=== PATIENT | female | born 1985 | race Caucasian/White ===

== ENCOUNTER 2017-05-03 07:04 | Emergency (ER) | payer MEDICAID ==
[~2017-05-03 07:04] MED LIST: SE-NTAB3 PO
--- NOTE | 2017-05-03 08:18 | PD ---
HPI Travel History International Travel<30 Days: No Contact w/Intl Traveler<30Days: No History of Present Illness HPI Patient is a 31-year-old at 26/5 presenting today for vaginal bleeding. She states earlier this morning she woke up, took a shower, and noticed spots of blood on the ground when she was walking outside the shower. She noted that there was blood coming from her vagina. No bleeding noted at this time. Currently she states that she feels normal movement. No large gushes of fluid. She denies any recent intercourse, trauma, lightheadedness, dizziness, abdominal pain, contractions, nausea, vomiting, fever, chills, other abnormally colored or malodorous vaginal discharge, dysuria, hematuria, frequency, change in urine color/smell. No other complaints at this time. Weeks Gestation: 26 Para: 1 : 2 Miscarriage: 0 : 0 History Past Medical History Medical History: Denies Significant Hx Obstetric History Obstetric History 1 for failure to descend Past Surgical History Narrative Surgical Previous dental surgery, 1 Family History Family History: Negative Social History Alcohol Use: Yes (Occasional) Tobacco Use: Yes (1/2 pack per day) Substance Abuse: No Allergies-Medications (Allergen,Severity, Reaction): Coded Allergies: No Known Allergies (Unverified Adverse Reaction, Unknown, 03/21/17) Home Meds Reported Medications Vit W/ Docusate-Fe Fu (Se-Franky 19 29-1 mg) 29 Mg Iron-1 Mg-25 Mg Tab, 1 TAB PO DAILY for Nutritional Supplement, TAB 0 Refills 02/02/17 Review of Systems General / Constitutional: No: Fever, Chills Eyes: No: Diploplia, Blurred Vision HENT: No: Headaches, Vertigo, Lightheadedness Cardiovascular: No: Chest Pain or Discomfort, Palpitations, Tachycardia, Syncope Respiratory: No: Cough, Short of Breath, Wheezing Gastrointestinal: No: Nausea, Vomiting, Diarrhea, Abdominal Pain Genitourinary: Vaginal Bleeding, No: Urgency, Frequency, Dysuria, Nocturia, Hematuria, Discharge Musculoskeletal: No: Limited ROM, Weakness Skin: No Rash, No Itching, No Dryness Neurologic: No: Weakness, Dizziness Endocrine: No: Polydipsia, Polyuria Hematologic/Lymphatic: No Easy Bruising, No Lymph Node Enlargement Physical Exam Narrative GENERAL: Well-nourished, well-developed patient. SKIN: Warm and dry. HEAD: Normocephalic and atraumatic. EYES: No scleral icterus. No injection or drainage. ENT: No nasal drainage noted. Mucous membranes pink. Airway patent. NECK: Supple, trachea midline. No JVD. CARDIOVASCULAR: Regular rate and rhythm without murmurs, gallops, or rubs. RESPIRATORY: Breath sounds equal bilaterally. No accessory muscle use. ABDOMEN/GI: Abdomen soft, non-tender, bowel sounds present, no rebound, no guarding GENITOURINARY: External Genitalia: intact and normal in appearance, 2 small dried blood spots on medial thigh and pubic area Speculum examination: Closed, thick cervix with normal appearing white discharge surrounding. No christina or dried blood in vaginal vault. FHT's: Category: 1 Baseline: 140 Reactive: yes Variability: moderate Decels: none EXTREMITIES: No cyanosis or edema. BACK: Nontender without obvious deformity. No CVA tenderness. NEUROLOGICAL: Awake and alert. Motor and sensory grossly within normal limits. Five out of 5 muscle strength in all muscle groups. Normal speech. Data Data Vital Signs Reviewed: Yes MDM Plan Patient is a 31-year-old at / who presented today for vaginal bleeding. No signs of symptomatic anemia. Bleeding was minimal and has stopped since then. No pain at this time. Normal speculum examination. US without sign of previa at this time. - Nonpainful bleeding in second trimester, resolved prior to examination - Continue routine care - Encourage PO hydration - Continue outpatient OB care - Monitor for additional bleeding, signs of labor EDINSON Parkinson Diagnosis Diagnosis: Primary Impression: Antepartum bleeding, third trimester Additional Impression: 26 weeks gestation of Disposition: 01 DISCHARGE HOME Condition: Stable Patient Instructions: General Instructions, Early Labor Signs (ED), Abdominal Pain in (ED), Labor (ED), Movement (ED) Darrel Grigsby MD R1 May 03, 2017 08:18
== END 2017-05-03 10:30 | disposition home or self-care (01) ==
LOC: HOBED 07:04
DX: O46.92 Antepartum hemorrhage, unspecified, second trimester (principal); Z3A.26 26 weeks gestation of pregnancy
CPT/HCPCS: 76805

== ENCOUNTER 2017-08-04 08:15 | Inpatient (IN) | payer OTHER ==
[~2017-08-04] VITALS: Ht 157.5 cm; Wt 73.0 kg
[2017-08-04 09:16] LABS: AUTOMATED NEUTROPHIL # 6.7 TH/MM3 (1.8-7.7); BASOPHIL % 0.3 % (0.0-2.0); EOSINOPHIL # 0.1 TH/MM3 (0-0.4); EOSINOPHIL % 1.1 % (0.0-4.0); HEMATOCRIT 33.6 % (35.0-46.0); HEMOGLOBIN 11.7 GM/DL (11.6-15.3); LYMPH % 18.3 % (9.0-44.0); LYMPHOCYTE # 1.7 TH/MM3 (1.0-4.8); MEAN CELL VOLUME 94.7 FL (80.0-100.0); MEAN CORPUSCULAR HEMOGLOBIN 33.1 PG (27.0-34.0); MEAN CORPUSCULAR HGB CONC 34.9 % (32.0-36.0); MEAN PLATELET VOLUME 6.9 FL (7.0-11.0); MONO % 6.7 % (0.0-8.0); MONOCYTE # 0.6 TH/MM3 (0-0.9); NEUT % 73.6 % (16.0-70.0); PLATELET COUNT 232 TH/MM3 (150-450); RED BLOOD COUNT 3.55 MIL/MM3 (4.00-5.30); RED CELL DISTRIBUTION WIDTH 11.9 % (11.6-17.2); WHITE BLOOD COUNT 9.1 TH/MM3 (4.0-11.0)
[2017-08-04 09:25] LABS: BACTERIA, URINE RARE /hpf; BILIRUBIN, URINE NEG (NEG); BLOOD, URINE SMALL (NEG); GLUCOSE,URINE NEG (NEG); KETONE, URINE NEG (NEG); MUCUS URINE FEW /lpf (OCC); NITRITE,URINE NEG (NEG); SQUAMOUS EPITHELIAL CELL URINE 3 /hpf (0-5); URINE COLOR YELLOW (YELLW/STRAW); URINE LEUKOCYTE ESTERASE TRACE (NEG)
[2017-08-04] MEDS ORDERED: MORPHINE SULFATE PF 5 MG/10 ML VIAL ONE (09:57)
[2017-08-04] MEDS ORDERED: ACETAMINOPHEN 1000 MG/100 ML 100 ML IV ONE ×2 (09:57→12:45)
[2017-08-04] MEDS ORDERED: LACTATED RINGER'S 1000 ML INJ 1,000 ML IV ONE (10:03)
[2017-08-04] MEDS ORDERED: LACTATED RINGER'S 1000 ML INJ 1,000 ML IV SCH ×2 (10:33→17:37)
--- NOTE | 2017-08-04 10:43 | HHI.HP ---
History & Physical H&P 31-year-old 001, IUP at 40/0 care complicated by tobacco use, history of prior delivery, abnormal Pap during that will require a LEEP per office notes The patient presents for section today as she did not go into labor prior to 40 weeks. She denies vaginal bleeding, loss of fluid, decreased movement. Initial went to due to failure to progress. Patient's last meal was at 8 PM on day prior to admission. Weeks Gestation: 40 Para: 1 : 2 History Past Medical History Medical History: Denies Significant Hx Obstetric History Obstetric History Full-term delivery Induction of labor at 40.5 Patient denies any sexually transmitted infection The patient has an abnormal Pap smear during that per the office notes , will require a LEEP Menarche started at age 11-12 and menses occur monthly. Her menses last 2-4 days. Past Surgical History Narrative Surgical delivery 1 Family History Narrative Family History Denies Social History Alcohol Use: No Tobacco Use: Yes Substance Abuse: No Allergies-Medications (Allergen,Severity, Reaction): Coded Allergies: No Known Allergies (Unverified Adverse Reaction, Unknown, 03/21/17) Home Meds Reported Medications Vit W/ Docusate-Fe Fu (Se-Franky 19 29-1 mg) 29 Mg Iron-1 Mg-25 Mg Tab, 1 TAB PO DAILY for Nutritional Supplement, TAB 0 Refills 02/02/17 Review of Systems Except as stated in HPI: all other systems reviewed are Neg Physical Exam Narrative GENERAL: Well-nourished, well-developed patient. SKIN: Warm and dry. HEAD: Normocephalic and atraumatic. EYES: No scleral icterus. No injection or drainage. ENT: No nasal drainage noted. Mucous membranes pink. Airway patent. NECK: Supple, trachea midline. No JVD. CARDIOVASCULAR: Regular rate and rhythm without murmurs, gallops, or rubs. RESPIRATORY: Breath sounds equal bilaterally. No accessory muscle use. BREASTS: deferred ABDOMEN/GI: Abdomen soft, non-tender, bowel sounds present, no rebound, no guarding Gravid GENITOURINARY: Deferred EXTREMITIES: No cyanosis or edema. BACK: Nontender without obvious deformity. NEUROLOGICAL: Awake and alert. Motor and sensory grossly within normal limits. Normal speech. Musculoskeletal: Grossly normal range of motion, gait, muscle strength Psychiatric: Grossly normal memory and affect MDM Plan Assessment/plan: 1. IUP at 40/0 here for scheduled as she did not go in active labor prior to 40 weeks. Patient has been n.p.o. since midnight. 2. Routine care. Will receive Jurgen Leal MD R1 Aug 04, 2017 10:43
--- NOTE | 2017-08-04 11:12 | HHI.PR ---
SYSTEM SUPPORT TECHNICIAN Note Note Pt presents for scheduled rCS. I personally performed her initial consultation. R/B/A of were discussed with the patient. Specifically we reviewed risks of bleeding, infection, pain, injury to baby or internal organs/nerves/vessels/structures. We reviewed the rare but possible need for emergency hysterectomy if uncontrolled bleeding occurs. She was also counseled on the rare but possible need for a blood transfusion and the associated risks of allergic reaction, HIV (1:1M), and hepatitis (4:1M). Pt desires permanent sterilization. Pt was counseled on R/B/A of BTL including but not limited to bleeding, infection, damage to surrounding structures including bowel/bladder. Pt was counseled on the risk of regret up to 30% and risk of failure approximately 3-5:1000. Pt understands high risk of ectopic in setting of failure, with need to contact provider immediately with positive UPT. She understands the permanent and irreversible nature of the procedure and the alternatives including OCPs, patch, NuvaRing, injections, IUD , Nexplanon, partner vasectomy. She is aware that BTL/salpingectomies decrease future risk of ovarian cancer. She stated her understanding and elects to proceed with permanent sterilization. Papers signed 06/27/17. She voiced understanding, all questions were answered, and consents were signed. Orders have been placed, bicitra and antibiotics administered, SCDs and oliver placed, and RN/ANES/NICU/Charge notified. Cinda Dempsey MD Aug 04, 2017 11:12
[2017-08-04] MEDS ORDERED: ceFAZolin 2 GM PREMIX 50 ML IV SCH (11:15)
[2017-08-04] MEDS ORDERED: CITRIC ACID-SODIUM CITRATE LIQ 30 ML UDC PO SCH (11:45)
[2017-08-04] MEDS ORDERED: PROPOFOL 200 MG/20 ML AMP IV ONE (12:00)
[2017-08-04] MEDS ORDERED: ePHEDrine/NS 25 MG/5 ML SYRINGE IV ONE (12:00)
[2017-08-04] MEDS ORDERED: ONDANSETRON HCL 4 MG/2 ML VIAL IV ONE (12:00)
[2017-08-04] MEDS ORDERED: PHENYLEPH/NS 1000 MCG/10 ML SYR IV ONE (12:00)
[2017-08-04] MEDS ORDERED: OXYTOCIN 10 UNIT/ML AMP IV ONE (12:00)
[2017-08-04] MEDS ORDERED: DEXAMETHASONE SOD PHOS 4 MG/ML VIAL IV ONE (12:00)
[2017-08-04] MEDS ORDERED: OXYTOCIN 30 UNITS-500ML PREMIX 500 ML IV ONE (12:45)
[2017-08-04] MEDS ORDERED: KETOROLAC TROMETHAMINE 60 MG/2 ML (IM) VIAL IM PRN (12:45)
[2017-08-04] MEDS ORDERED: ACETAMINOPHEN 325 MG TAB PO PRN (12:45)
[2017-08-04] MEDS ORDERED: SODIUM CHLORIDE 0.9% FLUSH 10 ML FLUSH IV FLUSH PRN (12:45)
--- NOTE | 2017-08-04 12:49 | PD.OP ---
Operative Report Date of Surgery: Aug 04, 2017 Preoperative Diagnosis: 1. IUP @ 40.0wks 2. h/o CSx1 3. desires permanent sterilization Postoperative Diagnosis: same Procedure: rCS and sterilization via distal salpingectomies Anesthesia: spinal Surgeon: Cinda Dempsey Route Vending Machine Servicer(s): MS-4 Rafia Operation and Findings: Antibiotics: 2g ancef DVT prophylaxis: SCDs were in place and active throughout the entire procedure EBL: 550cc IVF: 1500cc UOP: 200cc Drain(s): Hernandez to straight drain Specimen(s): cord blood Findings: vtx female delivered at 11:47am, wt 2695g, APGARs 8/9 Complications: none Disposition: to PACU in stable condition Technique: The R/B/A were discussed with the pt, all questions answered, and consents signed. The pt was taken to the operating room where spinal anesthesia was found to be adequate. She was then prepped and draped in the normal sterile fashion in the dorsal supine position with leftward tilt. A Pfannenstiel skin incision was then made with the scalpel and carried through to the underlying layer of fascia. The fascia was incised in the midline and the incision extended laterally with Hurley scissors. The superior aspect of the fascial incision was grasped with Bhavin clamps, elevated, and the underlying rectus muscles dissected off bluntly and with Hurley scissors. Attention was then turned to the inferior aspect of this incision which, in a similar fashion, was grasped , tented up with Bhavin clamps, and the rectus muscles dissected off bluntly and with Hurley scissors. The rectus muscles were then in the midline, and the peritoneum identified and entered bluntly. The peritoneal incision was stretched with good visualization of the bladder. The bladder blade was inserted and the vesicouterine peritoneum identified, grasped with pick-ups, and entered sharply with Metzenbaum scissors. This incision was extended laterally and a bladder flap created digitally. The bladder blade was then reinserted and the lower uterine segment incised in a transverse fashion with the scalpel. The uterine incision was stretched superiorly and inferiorly. The bladder blade was removed and the 's head delivered atraumatically followed by the body. Delayed cord clamping ensued for 45sec while the infant was dried, suctioned, and stimulated. The cord was double clamped and cut and infant handed off to the waiting team. The placenta expelled with manual fundal massage. The uterus was exteriorized and cleared of all clots and debris. The uterine incision was repaired with 0- vicryl in a running, locked fashion. A second layer using 0-monocryl suture was used to obtain excellent hemostasis via embrication. Next, the left fallopian tube was identified and the distal portion was clamped with a Vanessa and the segment excised with Metzenbaum scissors. The pedicle was ligated with two free ties of plain gut. Good hemostasis was noted. Attention was then turned to the R fallopian tube which was identified as above, grasped, clamped, and excised in a similar fashion. Good hemostasis was noted. The posterior cul-de-sac was suctioned and the uterus was returned to the abdomen. The gutters were cleared of all clots and debris. Pietro was placed along the bladder flap edge to aid in hemostasis. The underneath fascia was inspected and found to be hemostatic. The fascia was closed with 0-vicryl in a running fashion. The subcutaneous tissue was irrigated with saline and made hemostatic with the Bovie. The subcutaneous layer was reapproximated with plain gut with simple interrupted stitches. The skin was closed with 4-0 monocryl. Steristrips were placed and the incision dressed appropriately. The patient tolerated the procedure well. She was taken to the recovery room in stable condition. Sponge, lap, instrument, and needle counts were correct x3. Cinda Dempsey MD Aug 04, 2017 12:49
[2017-08-04] MEDS ORDERED: ONDANSETRON ODT 4 MG TAB PO PRN (13:00)
[2017-08-04] MEDS ORDERED: MORPHINE SULFATE 4 MG/ML INJ ONE (13:25)
[2017-08-04] MEDS ORDERED: MORPHINE SULFATE 4 MG/ML INJ IV PRN (14:00)
[2017-08-04] MEDS ORDERED: EPIDURAL-DO NOT ADMINISTER ANTICOAGULANTS PRN (14:15)
[2017-08-04] MEDS ORDERED: EPIDURAL-DIPHENHYDRAMINE HCL 50 MG/ML VIAL IV PUSH PRN (14:15)
[2017-08-04] MEDS ORDERED: EPIDURAL-DIPHENHYDRAMINE HCL 50 MG CAP PO PRN (14:15)
[2017-08-04] MEDS ORDERED: EPIDURAL-NO SYSTEMIC NARCOTICS PRN (14:15)
[2017-08-04] MEDS ORDERED: EPIDURAL-NALOXONE HCL 0.4 MG/ML AMP IV PUSH PRN (14:15)
--- NOTE | 2017-08-04 14:21 | HHI.PR ---
BOX BUILDER Note Note Postoperatively, I was notified by RN that while in PACU pt was experiencing bigeminy/trigeminy on telemetry. Cardiology c/s was placed and stat EKG ordered. Sinus rhythm with sinus arrhythmia and incomplete RBBB noted. Dr. Skelton (type disk quality control supervisor) was contacted directly. He stated that findings were not concerning and could reflect postoperative status. Pt is asx. Will monitor closely. OK to transfer to PP unit. Cinda Dempsey MD Aug 04, 2017 14:21
[2017-08-04] MEDS: oxyCODONE/ACETAMINOPHEN 5 MG/325 MG TAB PO PRN ×2 (17:01→21:40)
[2017-08-04] MEDS ORDERED: OXYTOCIN 30 UNITS-500ML PREMIX 500 ML IV PRN (17:45)
[2017-08-04 20:21] VITALS: BP 94/54; PULSE 76; RESP 17; TEMP 98.4
[2017-08-04] MEDS: SODIUM CHLORIDE 0.9% FLUSH 10 ML FLUSH IV FLUSH SCH (21:00)
[2017-08-04] MEDS: DOCUSATE SODIUM 50 MG/SENNA 8.6 MG TAB PO PRN (21:40)
[2017-08-05 00:03] VITALS: BP 110/59; PULSE 68; RESP 17; TEMP 98.3
[2017-08-05] MEDS: oxyCODONE/ACETAMINOPHEN 5 MG/325 MG TAB PO PRN ×5 (02:19→20:13)
[2017-08-05 04:45] VITALS: BP 100/63; PULSE 78; RESP 17; TEMP 98
[2017-08-05 05:51] LABS: AUTOMATED NEUTROPHIL # 10.4 TH/MM3 (1.8-7.7); BASOPHIL % 0.4 % (0.0-2.0); EOSINOPHIL % 0.4 % (0.0-4.0); HEMATOCRIT 30.1 % (35.0-46.0); HEMOGLOBIN 10.5 GM/DL (11.6-15.3); LYMPH % 13.6 % (9.0-44.0); LYMPHOCYTE # 1.8 TH/MM3 (1.0-4.8); MEAN CELL VOLUME 95.8 FL (80.0-100.0); MEAN CORPUSCULAR HEMOGLOBIN 33.4 PG (27.0-34.0); MEAN CORPUSCULAR HGB CONC 34.8 % (32.0-36.0); MEAN PLATELET VOLUME 6.9 FL (7.0-11.0); MONO % 6.6 % (0.0-8.0); MONOCYTE # 0.9 TH/MM3 (0-0.9); PLATELET COUNT 200 TH/MM3 (150-450); RED BLOOD COUNT 3.15 MIL/MM3 (4.00-5.30); RED CELL DISTRIBUTION WIDTH 11.8 % (11.6-17.2); WHITE BLOOD COUNT 13.1 TH/MM3 (4.0-11.0)
--- NOTE | 2017-08-05 08:18 | PD.CONS ---
HPI Consult Requested By Primary Care Physician No Primary Care Physician History of Present Illness This is an otherwise healthy 32-year-old female who had a done yesterday. In postop patient was noted to have PVCs in bigeminal and trigeminal pattern, no strips available. An EKG was done which showed sinus arrhythmia and incomplete right bundle branch block. Patient states that for the last week or so she has been feeling more panicked and is associated chest heaviness with it. She denies any shortness of breath or palpitations. She does continue to smoke. Review of Systems Negative except as stated in the HPI Past Family Social History Allergies: Coded Allergies: No Known Allergies (Verified Adverse Reaction, Unknown, 08/04/17) Past Medical History No significant Reported Medications Reported Meds & Active Scripts Active Reported Se-Franky 19 29-1 mg ( Vit W/ Docusate-Fe Fu) 29 Mg Iron-1 Mg-25 Mg Tab 1 Tab PO DAILY Active Ordered Medications Current Medications Medications (Trade) Dose Ordered Sig/Franchesca Route Start Time Stop Time Status Last Admin Lactated Ringer's 1,000 ml @ 150 mls/hr Q6H40M IV 08/04/17 10:33 Cefazolin Sodium/ Dextrose 50 ml @ 100 mls/hr PUBLIC ADDRESS ANNOUNCER IV 08/04/17 11:15 08/08/17 11:14 08/04/17 11:01 (Bicitra Liq) 30 ml PUBLIC ADDRESS ANNOUNCER PO 08/04/17 11:45 08/08/17 11:44 08/04/17 11:01 Lactated Ringer's 1,000 ml @ 100 mls/hr Q10H IV 08/04/17 17:37 08/05/17 13:36 08/04/17 21:39 Oxytocin 500 ml @ 100 mls/hr UNSCH X1 PRN IV 08/04/17 17:45 08/05/17 17:44 (NS Flush) 2 ml BID IV FLUSH 08/04/17 21:00 (NS Flush) 2 ml UNSCH PRN IV FLUSH 08/04/17 12:45 (Mylicon Chew) 80 mg QID PRN PO 08/04/17 12:45 (Tylenol) 650 mg Q6H PRN PO 08/04/17 12:45 (Toradol Inj) 30 mg Q6H PRN IM 08/04/17 12:45 08/05/17 12:44 (Percocet 5-325 Mg) 1 tab Q4H PRN PO 08/04/17 12:45 08/04/17 17:01 (Percocet 5-325 Mg) 2 tab Q4H PRN PO 08/04/17 12:45 08/05/17 06:45 (Lisa-Colace) 2 tab Q12H PRN PO 08/04/17 12:45 08/04/17 21:40 (M-M-R Ii Inj) 0.5 ml ONCE ONCE SQ 08/05/17 16:00 08/05/17 16:01 (Boostrix Inj) 0.5 ml ONCE ONCE IM 08/05/17 16:00 08/05/17 16:01 (Zofran Odt) 4 mg Q6H PRN PO 08/04/17 13:00 ([facility] [place] Nursing Information) NO SYSTEMIC NARCOTICS TO BE GIVEN FO... UNSCH PRN .XX 08/04/17 14:15 08/05/17 14:14 (Narcan Inj) 0.4 mg UNSCH PRN IV PUSH 08/04/17 14:15 08/05/17 14:14 (Benadryl Inj) 25 mg Q6H PRN IV PUSH 08/04/17 14:15 08/05/17 14:14 (Benadryl) 50 mg Q6H PRN PO 08/04/17 14:15 08/05/17 14:14 ([facility] [place] Nursing Information) ALL NURSING DEPARTMENTS UNSCH PRN .XX 08/04/17 14:15 08/05/17 14:14 Family History Denies Social History Half pack a day tobacco use Physical Exam Vital Signs Vital Signs Date Time Temp Pulse Resp B/P (MAP) Pulse Ox O2 Delivery O2 Flow Rate FiO2 08/05/17 04:45 98.0 78 17 100/63 (75) 08/05/17 00:03 98.3 68 17 110/59 (76) 08/04/17 20:21 98.4 76 17 94/54 (67) Physical Exam GENERAL: Well-developed well-nourished female in no acute distress. NECK: No carotid bruits. No JVD. CARDIOVASCULAR: Regular rate and rhythm. No murmur appreciated. RESPIRATORY: No accessory muscle use. Clear to auscultation. Breath sounds equal bilaterally. MUSCULOSKELETAL: No clubbing or cyanosis. No edema. NEUROLOGICAL: Awake and alert. Normal speech. Laboratory Laboratory Tests Test 08/04/17 08:30 08/04/17 08:45 08/05/17 05:34 Urine Color YELLOW Urine Turbidity CLEAR Urine pH 7.0 Urine Specific [place] 1.020 Urine Protein TRACE Urine Glucose (UA) NEG Urine Ketones NEG Urine Occult Blood SMALL Urine Nitrite NEG Urine Bilirubin NEG Urine Urobilinogen LESS THAN 2.0 Urine Leukocyte Esterase TRACE Urine RBC 3 Urine WBC 1 Urine Squamous Epithelial Cells 3 Urine Bacteria RARE Urine Mucus FEW Microscopic Urinalysis Comment CULT NOT INDICATED Urine Opiates Screen NEG Urine Barbiturates Screen NEG Urine Amphetamines Screen NEG Urine Benzodiazepines Screen NEG Urine Cocaine Screen NEG Urine Cannabinoids Screen NEG White Blood Count 9.1 13.1 Red Blood Count 3.55 3.15 Hemoglobin 11.7 10.5 Hematocrit 33.6 30.1 Mean Corpuscular Volume 94.7 95.8 Mean Corpuscular Hemoglobin 33.1 33.4 Mean Corpuscular Hemoglobin Concent 34.9 34.8 Red Cell Distribution Width 11.9 11.8 Platelet Count 232 200 Mean Platelet Volume 6.9 6.9 Neutrophils (%) (Auto) 73.6 79.0 Lymphocytes (%) (Auto) 18.3 13.6 Monocytes (%) (Auto) 6.7 6.6 Eosinophils (%) (Auto) 1.1 0.4 Basophils (%) (Auto) 0.3 0.4 Neutrophils # (Auto) 6.7 10.4 Lymphocytes # (Auto) 1.7 1.8 Monocytes # (Auto) 0.6 0.9 Eosinophils # (Auto) 0.1 0.0 Basophils # (Auto) 0.0 0.0 CBC Comment DIFF FINAL DIFF FINAL Differential Comment Result Diagram: 08/05/17 0534 Assessment and Plan Assessment and Plan This is an otherwise healthy 32-year-old female who had a done yesterday. In postop patient was noted to have PVCs in bigeminal and trigeminal pattern Postoperative PVCs: Likely benign and secondary to postoperative status. Check BMP to rule out any metabolic etiologies, and check echo to rule out any cardiomyopathy. If these are unremarkable nothing further to add from a cardiology perspective. Discussed Condition With Patient with RN and Dr. Walton at bedside Medhat Ness Aug 05, 2017 08:18
--- NOTE | 2017-08-05 08:29 | HHI.OB ---
Subjective Remarks Patient is a 32-year-old delivered at 40 weeks and 0 days. Patient is day 1 after scheduled . Patient's pain is well-controlled. Patient reports eating and drinking without any nausea or vomiting. Patient reports minimal bleeding, consistent with a.. Patient has passed gas but no bowel movements. Patient is walking without lower extremity pain or shortness of breath. Patient had tubal ligation, so no desire for contraception and plans to bottle feed. Objective Vitals/I&O Vital Signs Date Time Temp Pulse Resp B/P (MAP) Pulse Ox O2 Delivery O2 Flow Rate FiO2 08/05/17 04:45 98.0 78 17 100/63 (75) 08/05/17 00:03 98.3 68 17 110/59 (76) 08/04/17 20:21 98.4 76 17 94/54 (67) Intake & Output 08/05/17 08/05/17 07:00 19:00 Output Total 1250 ml Balance -1250 ml Output Urine Total 1250 ml Objective Remarks GENERAL: Well-nourished, well-developed patient. CARDIOVASCULAR: Regular rate and rhythm without murmurs, gallops, or rubs. RESPIRATORY: Breath sounds equal bilaterally. No accessory muscle use. ABDOMEN/GI: Abdomen soft, non-tender. Bandage overlying scar is clean dry and intact Fundus: Firm, non-tender at umbilicus. GENITOURINARY: Light to moderate bleeding. EXTREMITIES: No cyanosis or edema, non-tender, without signs of DVT. Medications and IVs Current Medications Medications (Trade) Dose Ordered Sig/Franchesca Route Start Time Stop Time Status Last Admin Lactated Ringer's 1,000 ml @ 150 mls/hr Q6H40M IV 08/04/17 10:33 Cefazolin Sodium/ Dextrose 50 ml @ 100 mls/hr OPERATIONAL METEOROLOGIST IV 08/04/17 11:15 08/08/17 11:14 08/04/17 11:01 (Bicitra Liq) 30 ml OPERATIONAL METEOROLOGIST PO 08/04/17 11:45 08/08/17 11:44 08/04/17 11:01 Lactated Ringer's 1,000 ml @ 100 mls/hr Q10H IV 08/04/17 17:37 08/05/17 13:36 08/04/17 21:39 Oxytocin 500 ml @ 100 mls/hr UNSCH X1 PRN IV 08/04/17 17:45 08/05/17 17:44 (NS Flush) 2 ml BID IV FLUSH 08/04/17 21:00 (NS Flush) 2 ml UNSCH PRN IV FLUSH 08/04/17 12:45 (Mylicon Chew) 80 mg QID PRN PO 08/04/17 12:45 (Tylenol) 650 mg Q6H PRN PO 08/04/17 12:45 (Toradol Inj) 30 mg Q6H PRN IM 08/04/17 12:45 08/05/17 12:44 (Percocet 5-325 Mg) 1 tab Q4H PRN PO 08/04/17 12:45 08/04/17 17:01 (Percocet 5-325 Mg) 2 tab Q4H PRN PO 08/04/17 12:45 08/05/17 06:45 (Lisa-Colace) 2 tab Q12H PRN PO 08/04/17 12:45 08/04/17 21:40 (M-M-R Ii Inj) 0.5 ml ONCE ONCE SQ 08/05/17 16:00 08/05/17 16:01 (Boostrix Inj) 0.5 ml ONCE ONCE IM 08/05/17 16:00 08/05/17 16:01 (Zofran Odt) 4 mg Q6H PRN PO 08/04/17 13:00 ([facility] [place] Nursing Information) NO SYSTEMIC NARCOTICS TO BE GIVEN FO... UNSCH PRN .XX 08/04/17 14:15 08/05/17 14:14 (Narcan Inj) 0.4 mg UNSCH PRN IV PUSH 08/04/17 14:15 08/05/17 14:14 (Benadryl Inj) 25 mg Q6H PRN IV PUSH 08/04/17 14:15 08/05/17 14:14 (Benadryl) 50 mg Q6H PRN PO 08/04/17 14:15 08/05/17 14:14 ([facility] [place] Nursing Information) ALL NURSING DEPARTMENTS UNSCH PRN .XX 08/04/17 14:15 08/05/17 14:14 Assessment/Plan Assessment and Plan Patient is a 32-year-old delivered at 40 weeks and 0 days. Patient is day 1 after scheduled . Patient was counseled to do 6 weeks of pelvic rest. Patient was counseled to follow up in 1 and 6 weeks --AF VSS --Continue routine care --Motrin and Percocet when necessary for pain --Encourage OOB --Pelvic rest for 6 weeks will need follow-up appointment at that time. Will need follow-up in 1 week to monitor incision site --Contraception: Had tubal ligation during the so no need for contraception moving forward --Anticipate discharge possibly tomorrow Jurgen Meyer MD R1 Aug 05, 2017 08:29
[2017-08-05] MEDS: SIMETHICONE 80 MG CHEWABLE TAB PO PRN ×2 (10:35→17:27)
[2017-08-05 11:22] LABS: BICARBONATE 23.5 MEQ/L (21.0-32.0); CALCIUM 9.2 MG/DL (8.5-10.1); CREATININE 0.44 MG/DL (0.50-1.00)
--- NOTE | 2017-08-05 15:19 | EKG ---
Date Performed: 08/04/2017 Time Performed: 13:31:48 PTAGE: 32 years EKG: Sinus rhythm WITH SINUS ARRHYTHMIA INCOMPLETE RIGHT BUNDLE BRANCH BLOCK BORDERLINE ECG NO PREVIOUS TRACING DOCTOR: Sundar Ozuna Interpretating Date/Time 08/05/2017 15:18:34
[2017-08-05] MEDS ORDERED: MEASLES, MUMPS, RUBELLA VACCINE 0.5 ML VIAL SQ ONE (16:00)
[2017-08-05] MEDS ORDERED: DIPHTH/TETANUS/ACEL PERTUSSIS (BOOSTER) 0.5 ML VIAL/PFS IM ONE (16:00)
[2017-08-05] MEDS: DOCUSATE SODIUM 50 MG/SENNA 8.6 MG TAB PO PRN (20:13)
[2017-08-05] MEDS: SODIUM CHLORIDE 0.9% FLUSH 10 ML FLUSH IV FLUSH SCH (20:14)
[2017-08-06] MEDS: SIMETHICONE 80 MG CHEWABLE TAB PO PRN ×2 (01:14→10:53)
[2017-08-06] MEDS: oxyCODONE/ACETAMINOPHEN 5 MG/325 MG TAB PO PRN ×4 (01:14→15:48)
--- NOTE | 2017-08-06 08:41 | HHI.OB ---
Subjective Post Operative Day: 2 Remarks Patient is a 32-year-old delivered at 40 weeks and 0 days. Patient is day 2 after . Patient's pain is well-controlled. Patient reports eating and drinking without any nausea or vomiting. Patient reports minimal bleeding. Patient has passed gas but no bowel movements. Patient is walking without lower extremity pain or shortness of breath. Patient reports desire for formula-feeding and s/p tubal ligation. Patient denied any chest pain, shortness of breath, palpitations, racing heart, syncope, presyncope at any point since the surgery, and she also denies any history of these things prior to presenting to the hospital. She reports that she was aware that she has a heart murmur. Objective Result Diagram: 08/05/17 0534 08/05/17 1024 Objective Remarks GENERAL: Well-nourished, well-developed patient. CARDIOVASCULAR: Regular rate and rhythm with 2 out of 6 systolic murmur, but no gallops, or rubs. RESPIRATORY: Breath sounds equal bilaterally. No accessory muscle use. ABDOMEN/GI: Abdomen soft, non-tender, bowel sounds present. Incision: Clean, dry and intact. Fundus: Firm, non-tender at umbilicus. GENITOURINARY: Light to moderate bleeding. EXTREMITIES: No cyanosis or edema, non-tender, without signs of DVT. Medications and IVs Current Medications Medications (Trade) Dose Ordered Sig/Franchesca Route Start Time Stop Time Status Last Admin Lactated Ringer's 1,000 ml @ 150 mls/hr Q6H40M IV 08/04/17 10:33 Cefazolin Sodium/ Dextrose 50 ml @ 100 mls/hr [facility]CHN[facility] LABORATORY ASST IV 08/04/17 11:15 08/08/17 11:14 08/04/17 11:01 (Bicitra Liq) 30 ml TECHNICAL LABORATORY ASST PO 08/04/17 11:45 08/08/17 11:44 08/04/17 11:01 (NS Flush) 2 ml BID IV FLUSH 08/04/17 21:00 08/05/17 20:14 (NS Flush) 2 ml UNSCH PRN IV FLUSH 08/04/17 12:45 (Mylicon Chew) 80 mg QID PRN PO 08/04/17 12:45 08/06/17 01:14 (Tylenol) 650 mg Q6H PRN PO 08/04/17 12:45 (Percocet 5-325 Mg) 1 tab Q4H PRN PO 08/04/17 12:45 08/05/17 10:46 (Percocet 5-325 Mg) 2 tab Q4H PRN PO 08/04/17 12:45 08/06/17 05:47 (Lisa-Colace) 2 tab Q12H PRN PO 08/04/17 12:45 08/05/17 20:13 (Zofran Odt) 4 mg Q6H PRN PO 08/04/17 13:00 Assessment/Plan Problem List: (1) S/P ICD Codes: Z98.891 - History of uterine scar from previous surgery (2) Trigeminy ICD Codes: R00.8 - Other abnormalities of heart beat Assessment and Plan Patient is a 32-year-old delivered at 40 weeks and 0 days. Patient is day 2 after scheduled . Patient was counseled to do 6 weeks of pelvic rest. Patient was counseled to follow up in 1 and 6 weeks. 1. Routine care --AF VSS --Continue routine care --Motrin and Percocet when necessary for pain --Encourage OOB --Pelvic rest for 6 weeks will need follow-up appointment at that time. Will need follow-up in 1 week to monitor incision site --Contraception: Had tubal ligation during the so no need for contraception moving forward --Anticipate discharge possibly tomorrow 2. Trigeminy noted during surgery - Patient denied any chest pain, shortness of breath, palpitations, racing heart, syncope, presyncope at any point since the surgery, and she also denies any history of these things prior to presenting to the hospital. She reports that she was aware that she has a heart murmur. In postop patient was noted to have PVCs in bigeminal and trigeminal pattern, no strips available. An EKG was done which showed sinus arrhythmia and incomplete right bundle branch block. -cardiology consulted: -BMP, echocardiogram, then ok to d/c D/w Dr. Prado Discharge Planning Discharge today Darrel Hannah MD R2 Aug 06, 2017 08:41
--- NOTE | 2017-08-06 08:45 | HHI.DCPOC ---
Discharge Care Plan Diagnosis: (1) Trigeminy (2) S/P Report Symptoms to Your Doctor -Temperature above 100.5 degrees -Redness, of incision or excessive or foul smelling drainage -Unusual pain or calf pain -Increased vaginal bleeding -Painful or difficulty urinating -Feelings of extreme sadness or anxiety after 2 weeks Goals to Promote Your Health * To prevent worsening of your condition and complications, please follow-up with tests and doctors as recommended. * To maintain your health at the optimal level, please follow-up with doctors as recommended. Directions to Meet Your Goals Take your medications as prescribed Follow your dietary instruction Follow activity as directed Ensure plenty of rest for recovery Drink fluids for hydration Keep your appointments as scheduled Take your immunizations and boosters as scheduled If your symptoms worsen call your PCP, if no PCP go to Urgent Care Center or Emergency Room Smoking is Dangerous to Your Health. Avoid second hand smoke Call the 24-hour crisis hotline for domestic abuse at Darrel Hannah MD R2 Aug 06, 2017 08:45
[2017-08-06] MEDS: DOCUSATE SODIUM 50 MG/SENNA 8.6 MG TAB PO PRN (10:53)
--- NOTE | 2017-08-06 21:48 | ECHRPT ---
Indication: Cardiomyopathy, PVCs CONCLUSIONS The left ventricular systolic function is low normal with an estimated ejection fraction in the rang e of 50- 55%. Wall thickness is normal. Normal left ventricular size. [id number] mitral valve regurgitation. There is mild to moderate tricuspid valve regurgitation. The estimated pulmonary arterial pressure is 35 mmHg. Mild pulmonary valve regurgitation. The inferior vena cava was not well visualized. BP: / HR: Rhythm: PVCs MEASUREMENTS (Male / Female) Normal Values Technical Quality:Good 2D ECHO LV Diastolic Diameter PLAX 5.2 cm 4.2 - 5.9 / 3.9 - 5.3 cm LV Systolic Diameter PLAX 3.7 cm IVS Diastolic Thickness 0.6 cm 0.6 - 1.0 / 0.6 - 0.9 cm LVPW Diastolic Thickness 0.7 cm 0.6 - 1.0 / 0.6 - 0.9 cm LV Relative Wall Thickness 0.3 RV Internal Dim ED PLAX 3.4 cm LVOT Diameter 1.9 cm LA Systolic Diameter LX 3.9 cm 3.0 - 4.0 / 2.7 - 3.8 cm M-MODE Aortic Root Diameter MM 2.2 cm LA Systolic Diameter MM 3.6 cm LA Ao Ratio MM 1.6 AV Cusp Separation MM 1.7 cm DOPPLER AV Peak Velocity 162.0 cm/s AV Peak Gradient 10.5 mmHg LVOT Peak Velocity 149.0 cm/s LVOT Peak Gradient 8.9 mmHg AV Area Cont Eq pk 2.6 cm MV Area PHT 4.2 cm Mitral E Point Velocity 121.0 cm/s Mitral A Point Velocity 66.1 cm/s Mitral E to A Ratio 1.8 LV E' Lateral Velocity 18.5 cm/s Mitral E to LV E' Lateral Ratio 6.5 LV E' Septal Velocity 12.5 cm/s Mitral E to LV E' Septal Ratio 9.7 TR Peak Velocity 273.0 cm/s TR Peak Gradient 29.8 mmHg Right Atrial Pressure 5.0 mmHg Pulmonary Artery Systolic Pressu 34.8 mmHg Right Ventricular Systolic Press 34.8 mmHg FINDINGS LEFT VENTRICLE The left ventricular systolic function is low normal with an estimated ejection fraction in the rang e of 50- 55%. Wall thickness is normal. Normal left ventricular size. RIGHT VENTRICLE Normal right ventricular size and systolic function. LEFT ATRIUM The left atrial size is normal. RIGHT ATRIUM The right atrial size is normal. ATRIAL SEPTUM Normal atrial septal thickness without atrial level shunting by limited color doppler interrogation. AORTA The aortic root and proximal ascending aorta are normal in size on limited imaging. MITRAL VALVE Structurally normal mitral valve. [id number] mitral valve regurgitation. AORTIC VALVE Trileaflet aortic valve. No aortic valve stenosis or regurgitation. TRICUSPID VALVE Structurally normal tricuspid valve. There is mild to moderate tricuspid valve regurgitation. The estimated pulmonary arterial pressure is 35 mmHg. PULMONARY VALVE Mild pulmonary valve regurgitation. VESSELS The inferior vena cava was not well visualized. PERICARDIUM No pericardial effusion. Lobo Hamilton MD, FACC, [facility] [place] (Electronically Signed) Final Date:06 August 2017 21:46
== END 2017-08-06 16:00 | disposition home or self-care (01) | DRG 765 ==
LOC: H2EB 08:15 → H1EA 13:41
PROVIDERS: ADMIT Obstetrics & Gynecology; ATTEND Obstetrics & Gynecology
PROC: 10D00Z1 Extraction of Products of Conception, Low, Open Approach (ICD-10-PCS; principal; 2017-08-04)
PROC: 0UB70ZZ Excision of Bilateral Fallopian Tubes, Open Approach (ICD-10-PCS; 2017-08-04)
DX: O34.211 Maternal care for low transverse scar from previous cesarean delivery (principal); O99.42 Diseases of the circulatory system complicating childbirth; O99.334 Smoking (tobacco) complicating childbirth; R89.6 Abnormal cytological findings in specimens from other organs, systems and tissues; I45.10 Unspecified right bundle-branch block; R01.1 Cardiac murmur, unspecified; Z30.2 Encounter for sterilization; Z37.0 Single live birth; Z3A.40 40 weeks gestation of pregnancy
CPT/HCPCS: 59025; 80048; 80307; 81001; 85025; 86850; 86900; 86901; 88302; 93005; 93306; G0481; J0131; J0690; J1100; J2270; J2274; J2370; J2405; J2590; J7120